=== PATIENT | female | born 1995 | race Caucasian/White ===

== ENCOUNTER 2017-03-09 22:09 | Emergency (ER) | payer OTHER ==
--- NOTE | 2017-03-09 22:20 | EDPHY ---
H & P Stated Complaint: ST, hurts to breathe HPI/ROS: CHIEF COMPLAINT: Sore throat HISTORY OF PRESENT ILLNESS: The patient is a 22-year-old female presenting with sore throat for the past 4 days. Her sore throat has progressively been worsening. She reports pain with breathing and swallowing. She has a slight cough that is nonproductive. She denies fever, abdominal pain, nausea, vomiting , or diarrhea. She did not receive the influenza vaccine this season. REVIEW OF SYSTEMS: A ten point review of systems was performed and is negative with the exception of the items mentioned in the HPI. Source: Patient - Personal History LMP (Females 10-55): Extended Cycle BCP/Inj Current Tetanus/Diphtheria Vaccine: Yes Current Tetanus Diphtheria and Acellular Pertussis (TDAP): Yes - Medical/Surgical History Hx Asthma: No Hx Chronic Respiratory Disease: No Hx Diabetes: No Hx Cardiac Disease: No Hx Renal Disease: No Hx Cirrhosis: No Hx Alcoholism: No Hx HIV/AIDS: No Hx Splenectomy or Spleen Trauma: No Other PMH: migraines, polycycstic kidney disease, ulcers. - Social History Smoking Status: Never smoked Alcohol Use: Rarely Drug Use: None Additional Social History: Student at [employer]. - Physical Exam Exam: General Appearance: Alert. Vital signs reviewed. BP 177/123 at triage. Repeat BP 144/105. Eyes: Pupils equal and round, no conjunctival injection, no discharge. Anicteric. ENT, Mouth: Mucous membranes are moist, mild oropharyngeal erythema, no exudates, no edema. Neck: No lymphadenopathy, supple. No meningismus. Respiratory: Lungs are clear to auscultation; no wheezes, rales, or rhonchi. Cardiovascular: Regular rate and rhythm; no murmur, rub, or gallop. Gastrointestinal: Abdomen is soft and nontender, no masses or organomegaly, bowel sounds normal. Skin: Warm and dry, no rashes on exposed skin, normal color. Back: Nontender to palpation over the thoracolumbar spine. No CVAT. Extremities: No lower extremity edema, no calf tenderness or swelling. Neurological: Alert and oriented. Moving all four extremities easily and equally. Psychiatric: Normal affect. Constitutional: Initial Vital Signs Temperature (C) 36.9 C 03/09/17 22:12 Heart Rate 84 03/09/17 22:12 Respiratory Rate 16 03/09/17 22:12 Blood Pressure 177/123 H 03/09/17 22:12 O2 Sat (%) 98 03/09/17 22:12 O2 Delivery Mode Room Air Allergies/Adverse Reactions: codeine Allergy (Verified 03/09/17 22:12) NSAIDS (Non-Steroidal Anti-Inflamma Allergy (Verified 03/09/17 22:12) Penicillins Allergy (Verified 03/09/17 22:12) Home Medications: Medication Instructions Recorded Bcp 03/09/17 Omeprazole 03/09/17 Ondansetron Odt [Zofran Odt 4 mg 4 mg PO Q4 PRN #10 tab 03/09/17 (RX)] Medical Decision Making ED Course/Re-evaluation: The patient is a 22-year-old female presenting with sore throat. She reports pain with breathing and swallowing. One exam has pharyngeal erythema, no swelling. Rapid strep screen and nasal swab for influenza were ordered. Patient has a history of ulcers, plan to give 650mg Tylenol PO for pain. Strep and influenza tests were negative. I am recommending symptomatic treatment. A prescription for Vicodin was written. After speaking with her mother she tells me that all opiate pain medications cause nausea and vomiting, even with the use of an antiemetic. She declines prescription for pain medication. She would like to try an oral steroid to help combat her sensation of throat swelling. She was given a dose of oral decadron. I do not suspect epiglottitis at this juncture, nor do I suspect retropharyngeal abscess. Exam does not show peritonsillar abscess. I think that this is likely a viral pharyngitis. This does not appear to be an allergic reaction or angioedema. She is aware of her high blood pressure in the ED and will have it rechecked by primary care provider. Differential Diagnosis: I considered a differential diagnosis that includes but is not limited to pharyngitis either viral or bacterial, influenza, retropharyngeal abscess, epiglottitis, and upper respiratory infection. - Data Points Medications Given: Discontinued Medications Acetaminophen (Tylenol) 650 mg PO EDNOW ONE Stop: 03/09/17 22:28 Last Admin: 03/09/17 22:38 Dose: 650 mg Hydrocodone Bitart/Acetaminophen (Divide 5/325mg Prepack#6) 1 btl TAKEHOME EDNOW ONE Stop: 03/09/17 23:29 Last Admin: 03/10/17 00:02 Dose: Not Given Dexamethasone (Decadron) 4 mg PO EDNOW ONE Stop: 03/09/17 23:40 Last Admin: 03/09/17 23:47 Dose: 4 mg Ondansetron HCl (Zofran Odt 4 Mg Prepack#2) 1 btl TAKEHOME EDNOW ONE Stop: 03/09/17 23:31 Last Admin: 03/10/17 00:03 Dose: 1 btl Departure - Departure Disposition: Home, Routine, Self-Care Clinical Impression: Pharyngitis Qualifiers: Pharyngitis/tonsillitis etiology: unspecified etiology Qualified Code(s): J02.9 - Acute pharyngitis, unspecified Condition: Good Instructions: Ondansetron (By mouth), Pharyngitis (ED) Additional Instructions: Get lots of rest. Drink lots of fluids, even though it hurts. It is fine to use any of the rjcj-wiw-kyrhvnj medications for sore throat-- saltwater gargle, lozenges, throat coat tea. Use the Vicodin for severe pain as needed. Each Vicodin contains hydrocodone, a narcotic, and Tylenol 325 mg. You received Tylenol 650 mg in the emergency room tonight at around 10:00 p.m.. Take a Vicodin when you get home. Remember that you cannot take more than 3000 mg of Tylenol in a 24 hour time period. I recommend that you see right down whenever you take Tylenol or Vicodin so that you can keep track of the dosing. You should not try to take a test tomorrow morning. I will provide a school excuse for you. If you are having severe difficulty breathing or swallowing you should be reexamined immediately. If you're not getting better I recommend that you be seen at [facility] within the next day or 2. Referrals: [facility] [Clinic] - As per Instructions Stand Alone Forms: School Excuse Prescriptions: Ondansetron Odt [Zofran Odt 4 mg (RX)] 4 mg PO Q4 PRN #10 tab PRN Reason: nausea Report Scribed for: Erika Jean Report Scribed by: Ivelisse Gtz Date of Report: 03/09/17 Time of Report: 22:27 Physician Review and Approval Statement: 03/09/17 22:20 Portions of this note were transcribed by the medical accounting clerk. I, Dr. Erika Jean, personally performed the history, physical exam, and medical decision- making; and confirmed the accuracy of the information in the transcribed note.
[2017-03-09] MEDS ORDERED: ACETAMINOPHEN 325 MG TAB PO ONE (22:27)
[2017-03-09] MEDS ORDERED: HYDROCOD/APAP 5/325 PREPACK#6 BTL TAKEHOME ONE (23:28)
[2017-03-09] MEDS ORDERED: ONDANSETRON 4MG PREPACK#2 BTL TAKEHOME ONE (23:30)
[2017-03-09] MEDS ORDERED: DEXAMETHASONE 4 MG TAB PO ONE (23:39)
[2017-03-10 00:18] VITALS: BP 144/105; PULSE 68; RESP 15; TEMP 98.2; O2SAT 96
== END 2017-03-09 23:52 | disposition home or self-care (01) ==
DX: J02.9 Acute pharyngitis, unspecified (principal)

== ENCOUNTER 2017-08-20 18:52 | Emergency (ER) | payer OTHER ==
[2017-08-20 19:04] VITALS: PULSE 78; RESP 16; TEMP 98.1; O2SAT 100
[2017-08-20 19:05] VITALS: BP 164/106
--- NOTE | 2017-08-20 19:27 | EDPHY ---
H & P Stated Complaint: Steam benson from oven on face and neck. Time Seen by Provider: 08/20/17 19:23 HPI/ROS: CHIEF COMPLAINT: "Steam benson" HISTORY OF PRESENT ILLNESS: This patient is a 22 year female complaining of steam benson on her face and neck sustained when opening her oven about one hour ago. She was making soup, and a large quantity of steam came out of the oven and washed over her chest and face. She applied ice and burn cream, but continues to feel quite a bit of pain to her chest and lips. She is hyperventilating, but denies dyspnea or difficulty breathing. Her mouth, nose, and airway feel okay. She has no further complaints or other associated symptoms. REVIEW OF SYSTEMS: A 10 point review of systems was performed and is negative with the exception of the elements mentioned in the history of present illness. - Personal History LMP (Females 10-55): Unknown Current Tetanus/Diphtheria Vaccine: Yes Current Tetanus Diphtheria and Acellular Pertussis (TDAP): Yes - Medical/Surgical History PMH: 1. Migraines, 2. Polycystic kidney disease 3. Ulcers Hx Asthma: No Hx Chronic Respiratory Disease: No Hx Diabetes: No Hx Cardiac Disease: No Hx Renal Disease: No Hx Cirrhosis: No Hx Alcoholism: No Hx HIV/AIDS: No Hx Splenectomy or Spleen Trauma: No Other PMH: migraines, polycycstic kidney disease, ulcers. - Social History Smoking Status: Never smoked Additional Social History: Student. Nonsmoker. Lives in [place]. - Physical Exam Exam: General Appearance: Alert, hyperventilating, appears anxious Eyes: Pupils equal and round, no conjunctival pallor or injection ENT, Mouth: erythema on the inferior aspect of her nose externally, no singed nasal hair; oropharynx normal, no swelling Neck: Normal inspection, no stridor Respiratory: Lungs are clear to auscultation Cardiovascular: Regular rate and rhythm Neurological: A&O, nonfocal, normal gait Skin: Warm and dry, patchy erythema on upper chest, lips, and inferior aspect of nose. Extremities: Nontender, no pedal edema Psychiatric: anxious Constitutional: Initial Vital Signs Temperature (C) 36.7 C 08/20/17 19:02 Heart Rate 78 08/20/17 19:02 Respiratory Rate 16 08/20/17 19:02 Blood Pressure 164/106 H 08/20/17 19:02 O2 Sat (%) 100 08/20/17 19:02 O2 Delivery Mode Room Air Allergies/Adverse Reactions: codeine Allergy (Verified 03/09/17 22:12) NSAIDS (Non-Steroidal Anti-Inflamma Allergy (Verified 03/09/17 22:12) Penicillins Allergy (Verified 03/09/17 22:12) Home Medications: Medication Instructions Recorded Bcp 03/09/17 Omeprazole 03/09/17 Ondansetron Odt [Zofran Odt 4 mg 4 mg PO Q4 PRN #10 tab 03/09/17 (RX)] Medical Decision Making ED Course/Re-evaluation: 22 y/o female presents with superficial steam benson to her chest and face. No evidence of intranasal/oral involvement. Ice applied to the benson. Plan to administer 1000mg PO Tylenol for symptom relief. The patient states she is allergic to NSAIDs. I offered hydrocodone, but she states narcotic pain medications cause her to vomit violently. Plan to discharge home in good condition. Follow up and return precautions discussed. The patient is comfortable with this plan. - Data Points Medications Given: Discontinued Medications Acetaminophen (Tylenol) 1,000 mg PO EDNOW ONE Stop: 08/20/17 19:41 Last Admin: 08/20/17 19:42 Dose: 1,000 mg Departure - Departure Disposition: Home, Routine, Self-Care Clinical Impression: Superficial burn of face Qualifiers: Encounter type: initial encounter Qualified Code(s): T20.10XA - Burn of first degree of head, face, and neck, unspecified site, initial encounter Superficial burn of chest wall Qualifiers: Encounter type: initial encounter Qualified Code(s): T21.11XA - Burn of first degree of chest wall, initial encounter Condition: Good Instructions: Superficial Burn (ED) Additional Instructions: 1. Apply ice for comfort. 2. Take 650mg Tylenol every 4-6 hours as needed for pain. 3. Follow up with your primary care provider for continued concerns. Referrals: Cristi Mena MD [Medical Doctor] - As per Instructions Report Scribed for: Flory Altman Report Scribed by: Jazzy Mark Date of Report: 08/20/17 Time of Report: 19:29 Physician Review and Approval Statement: 08/20/17 19:29 Portions of this note were transcribed by a medical record specialist. I personally performed a history, physical exam, medical decision making, and confirmed accuracy of information the transcribed note.
[2017-08-20] MEDS ORDERED: HYDROCODONE/APAP 5/325 TAB PO ONE (19:33)
[2017-08-20] MEDS ORDERED: HYDROCOD/APAP 5/325 PREPACK#6 BTL TAKEHOME ONE (19:34)
[2017-08-20] MEDS ORDERED: ACETAMINOPHEN 500 MG TAB PO ONE (19:40)
== END 2017-08-20 19:57 | disposition home or self-care (01) ==
DX: T20.10XA Burn of first degree of head, face, and neck, unspecified site, initial encounter (principal); T21.11XA Burn of first degree of chest wall, initial encounter; X13.1XXA Other contact with steam and other hot vapors, initial encounter; Y99.8 Other external cause status; Y93.G3 Activity, cooking and baking

== ENCOUNTER 2017-09-12 07:49 | Emergency (ER) | payer OTHER ==
--- NOTE | 2017-09-12 08:39 | EDPHY ---
H & P Stated Complaint: running last night twisted r ankle HPI/ROS: Chief complaint: Right ankle injury History of present illness: 22-year-old female presents to the emergency department for right ankle injury. She was running last night when she twisted her ankle. Since then she has had diffuse pain throughout the ankle and foot. It makes it difficult to ambulate. She denies other associated signs or symptoms in regards to the ankle injury including no open wounds, no abnormal coolness or paresthesias in the ankle. She states that the discomfort is giving her a headache. She is also requesting treatment for her headache. She has a history of migraine headaches and this is typical. There is nothing new or different today is compared to previous episodes. No fevers, no cold like symptoms, no neurologic symptoms beyond headache such as paresthesias, weakness or paralysis or bowel or bladder dysfunction. There was no trauma to her head. Review of systems: A 10 point review of systems was obtained and other than described above was negative - Personal History LMP (Females 10-55): Extended Cycle BCP/Inj Current Tetanus/Diphtheria Vaccine: No - Medical/Surgical History Hx Asthma: No Hx Chronic Respiratory Disease: No Hx Diabetes: No Hx Cardiac Disease: No Hx Renal Disease: No Hx Cirrhosis: No Hx Alcoholism: No Hx HIV/AIDS: No Hx Splenectomy or Spleen Trauma: No Other PMH: migraines, polycycstic kidney disease, ulcers. - Social History Smoking Status: Never smoked - Physical Exam Exam: General Appearance: Alert and no distress. Eyes: Pupils equal and round no injection. Respiratory: Chest is non tender, lungs are clear to auscultation. Cardiac: regular rate and rhythm Gastrointestinal: Abdomen is soft and non tender, no masses, bowel sounds normal. Musculoskeletal: Diffuse tenderness to the right ankle and foot without point of maximal intensity noted. No crepitus or bony deformity. She is moving the right ankle in the digits of the right foot. The knee is nontender and she is moving it well. Skin: No rashes or lesions. Neurological: Alert and oriented x4. Cranial nerves 2-12 grossly intact. Strength and sensation intact and symmetrical. No meningismus. Constitutional: Initial Vital Signs Temperature (C) 36.6 C 09/12/17 07:53 Heart Rate 92 09/12/17 07:53 Respiratory Rate 17 09/12/17 07:53 Blood Pressure 149/93 H 09/12/17 07:53 O2 Sat (%) 96 09/12/17 07:53 O2 Delivery Mode Room Air Allergies/Adverse Reactions: codeine Allergy (Verified 09/12/17 07:52) NSAIDS (Non-Steroidal Anti-Inflamma Allergy (Verified 09/12/17 07:52) Penicillins Allergy (Verified 09/12/17 07:52) Home Medications: Medication Instructions Recorded Bcp 03/09/17 Omeprazole 03/09/17 Medical Decision Making - Diagnostics Imaging Results: Imaging Impressions Ankle X-Ray 09/12/17 08:01 Impression: There is no acute osseous abnormality. RIGHT FOOT (3 Views, at 8:21 AM): There is no acute fracture or dislocation. There is an unfused os tibiale externum along the medial edge of the navicular. The tarsometatarsal alignment is anatomic. The calcaneocuboid joint is aligned, and the base of the fifth metatarsal is unremarkable. Impression: There is no acute osseous abnormality identified. Foot X-Ray 09/12/17 08:01 Impression: There is no acute osseous abnormality. RIGHT FOOT (3 Views, at 8:21 AM): There is no acute fracture or dislocation. There is an unfused os tibiale externum along the medial edge of the navicular. The tarsometatarsal alignment is anatomic. The calcaneocuboid joint is aligned, and the base of the fifth metatarsal is unremarkable. Impression: There is no acute osseous abnormality identified. Imaging: I viewed and interpreted images myself Procedures: Procedure: Splint placement. A Brett wrap and Velcro stirrup splint was applied. After application of the splint I returned and re-examined the patient. The splint was adequately immobilizing the joint and distal to the splint the patient's circulation and sensation was intact. ED Course/Re-evaluation: Patient seen under the supervision of my secondary supervising physician Dr. Kali Aguilar. Patient presents to the emergency department primarily for a right ankle injury and secondarily for a headache. Her foot is neurovascularly intact. X-rays are negative. Likely sprain/strain. Placed in an Brett wrap and stirrup splint and symptomatic care is discussed. She reports a headache that is very typical in nature. No red flag risk factors noted. She is symptomatically treated with improvement in symptoms. Patient is discharged home. Home care is discussed. Return precautions are given. The patient voiced understanding and agreement with plan. Differential Diagnosis: Included but not limited to contusion, sprain or strain, bony fracture, joint dislocation as well as migraine headache, tension headache, cluster headache, unlikely intracranial bleed or meningitis - Data Points Medications Given: Discontinued Medications Sodium Chloride (Ns) 1,000 mls @ 0 mls/hr IV EDNOW ONE; Wide Open PRN Reason: Protocol Stop: 09/12/17 08:47 Last Admin: 09/12/17 08:54 Dose: 1,000 mls Metoclopramide HCl (Reglan Injection) 10 mg IVP EDNOW ONE Stop: 09/12/17 08:47 Last Admin: 09/12/17 08:55 Dose: 10 mg Departure - Departure Disposition: Home, Routine, Self-Care Clinical Impression: Right ankle sprain Qualifiers: Encounter type: initial encounter Involved ligament of ankle: unspecified ligament Qualified Code(s): S93.401A - Sprain of unspecified ligament of right ankle, initial encounter Headache Qualifiers: Headache type: unspecified Headache chronicity pattern: acute headache Intractability: not intractable Qualified Code(s): R51 - Headache Condition: Good Instructions: Ankle Sprain (ED), Acute Headache (ED) Additional Instructions: Follow-up with your primary care doctor for recheck Ice the injury, 20 minutes on, 3 times daily for the next 3 days Elevate the injury as much as possible [id number] pain medications as tolerated as directed If symptoms worsen or new symptoms develop return to the emergency room for recheck Referrals: [facility] [Other] - As per Instructions
[2017-09-12] MEDS ORDERED: METOCLOPRAMIDE 10 MG/2 ML VIAL IVP ONE (08:46)
[2017-09-12] MEDS ORDERED: NS 1,000 ML IV ONE (08:46)
[2017-09-12 09:56] VITALS: BP 147/101; PULSE 95; RESP 15; TEMP 98.8; O2SAT 97
== END 2017-09-12 09:56 | disposition home or self-care (01) ==
PROC: 3E0337Z Introduction of Electrolytic and Water Balance Substance into Peripheral Vein, Percutaneous Approach (ICD-10-PCS; principal; 2017-09-12)
DX: S93.401A Sprain of unspecified ligament of right ankle, initial encounter (principal); R51 Headache; E86.9 Volume depletion, unspecified; X50.9XXA Other and unspecified overexertion or strenuous movements or postures, initial encounter; Y93.02 Activity, running
CPT/HCPCS: 96374; J2765; L4350

== ENCOUNTER 2018-09-05 20:02 | Emergency (ER) | payer OTHER ==
[2018-09-05] MEDS ORDERED: NS 1,000 ML IV ONE ×2 (20:32)
[2018-09-05] MEDS ORDERED: PROMETHAZINE HCL 25 MG/ML INJ IVP ONE (20:32)
--- NOTE | 2018-09-05 20:33 | EDPHY ---
H & P Stated Complaint: abd pain, n/v migraines Time Seen by Provider: 09/05/18 20:30 HPI/ROS: HPI: This is a 23-year-old female presents with Chief Complaint: Nausea, vomiting, migraine Location: GI Quality: Nausea, vomiting Duration: Since this morning around 8:00 p.m. Signs and Symptoms: no fever, + nausea, + vomiting, no hematemesis, no blood in stool, no abdominal bloating, no diarrhea, no back pain, no urinary symptoms, no vaginal bleeding/discharge, no indigestion, no chest pain, no shortness of breath Timing: Acute, intermittent Severity: [id number] Context: Patient has a history of migraine headaches, takes oral control pills, presents with concerns of food poisoning from eating the chicken wings at [employer] yesterday evening around 9:00 p.m. She reports she reports that she woke up this morning feeling nauseous and has vomited 5 times approximately over the last 18 hr. Within the last 3 hr she started to developed headache that is generalized and accompanied by noise sensitivity and light sensitivity. She believes that since she has not ate or drank anything today this is causing her headache. She denies any abdominal pain but does complain of abdominal cramping before after emesis. Her menses is normally irregular. Denies any visual changes. Modifying Factors: None Comment: ROS: A comprehensive 10 system review of systems is otherwise negative aside from elements mentioned in the history of present illness. MEDICAL/SURGICAL/SOCIAL HISTORY: Medical history: migraines, polycystic kidney disease, ulcers. Takes oral control pills. Surgical history: Denies Social history: Employed. Family history noncontributory. CONSTITUTIONAL: Nontoxic-appearing young adult white female, calm and cooperative, awake and alert, no obvious distress HEENT: Atraumatic and normocephalic, PERRL, EOMI. Nares patent; no rhinorrhea; no nasal mucosal edema. Tympanic membranes clear. Oropharynx clear, no exudate and moist pink mucosa. Airway patent. No lymphadenopathy. No meningismus. Cardiovascular: Normal S1/S2, regular rate, regular rhythm, without murmur rub or gallop. PULMONARY/CHEST: Symmetrical and nontender. Clear to auscultation bilaterally. Good air movement. No accessory muscle usage. ABDOMEN: Soft, nondistended, nontender, no rebound, no guarding, no peritoneal signs, no masses or organomegaly. No CVAT. Hyperactive bowel sounds x4 quadrants. EXTREMITIES: 2/2 pulses, strength 5/5, no deformities, no clubbing, no cyanosis or edema. NEUROLOGICAL: no focal neuro deficits. GCS 15. SKIN: Warm and dry, no erythema. no rash. Good capillary refill. Source: Patient Exam Limitations: No limitations - Personal History LMP (Females 10-55): Irregular Current Tetanus Diphtheria and Acellular Pertussis (TDAP): Unsure - Medical/Surgical History Hx Asthma: No Hx Chronic Respiratory Disease: No Hx Diabetes: No Hx Cardiac Disease: No Hx Renal Disease: No Hx Cirrhosis: No Hx Alcoholism: No Hx HIV/AIDS: No Hx Splenectomy or Spleen Trauma: No Other PMH: migraines, polycycstic kidney disease, ulcers. - Social History Smoking Status: Never smoked Constitutional: Initial Vital Signs Temperature (C) 37.2 C 09/05/18 20:07 Heart Rate 112 H 09/05/18 20:07 Respiratory Rate 20 09/05/18 20:07 Blood Pressure 135/94 H 09/05/18 20:07 O2 Sat (%) 97 09/05/18 20:07 O2 Delivery Mode Room Air Allergies/Adverse Reactions: codeine Allergy (Verified 09/05/18 20:06) NSAIDS (Non-Steroidal Anti-Inflamma Allergy (Verified 09/05/18 20:06) Penicillins Allergy (Verified 09/05/18 20:06) Home Medications: Medication Instructions Recorded Bcp 03/09/17 Omeprazole 03/09/17 Acet/Caffeine/Buta Fioricet 1 each PO Q6 PRN #12 tab 09/05/18 [Fioricet (*)] Ondansetron Odt [Zofran Odt 4 mg 4 mg PO Q4 PRN #12 tab 09/05/18 (*)] Medical Decision Making ED Course/Re-evaluation: Vital signs reviewed and show mild tachycardia. Suspect the tachycardia is related to hypovolemia secondary to vomiting. Laboratory studies ordered. Headache is not worst of life. No indication for imaging. No concern for aneurysm or dissection. Abdomen is soft and nontender. Doubt surgical process and need for imaging. Patient does not have any diarrhea to obtain stool samples. Given 2 L normal saline, IV promethazine 12.5 mg 2130: Labs reviewed. Mild elevation total bili at 1.8. no signs of Electrolyte imbalance/acute kidney injury/pancreatitis/. 2131: Reassessed patient reports mild relief of symptoms. No episodes of emesis while in the emergency room thus far. Given IV Reglan 10 mg and IV Benadryl 50 mg. 2229: Reassessed patient who reports nearly complete relief of symptoms. Given a prescription for Fioricet and Zofran as well as Zofran prepack to take home. This patient was seen under the supervision of my secondary supervising physician. I evaluated care for this patient independently. Discussed this patient with Dr. Altman. Differential Diagnosis: Abdominal pain including but not limited to appendicitis, cholecystitis, gastritis and urinary tract infection. - Data Points Laboratory Results: Laboratory Results 09/05/18 20:35 09/05/18 09/05/18 20:35 20:35 Sodium 136 mEq/L mEq/L (135-145) Potassium 3.9 mEq/L mEq/L (3.3-5.0) Chloride 101 mEq/L mEq/L (97-110) Carbon Dioxide 24 mEq/l mEq/l (22-31) Anion Gap 11 mEq/L mEq/L (6-14) BUN 13 mg/dL mg/dL (7-23) Creatinine 0.7 mg/dL mg/dL (0.6-1.0) Estimated GFR > 60 Glucose 104 mg/dL H mg/dL (70-100) Calcium 9.1 mg/dL mg/dL (8.5-10.4) Total Bilirubin 1.8 mg/dL H mg/dL (0.1-1.4) Conjugated Bilirubin 0.2 mg/dL mg/dL (0.0-0.5) Unconjugated Bilirubin 1.6 mg/dL H mg/dL (0.0-1.1) AST 20 IU/L IU/L (14-46) ALT 29 IU/L IU/L (9-52) Alkaline Phosphatase 40 IU/L IU/L (38-126) Total Protein 6.8 g/dL g/dL (6.3-8.2) Albumin 4.1 g/dL g/dL (3.5-5.0) Lipase 39 IU/L IU/L (23-300) Beta HCG, Qual NEGATIVE Medications Given: Discontinued Medications Diphenhydramine HCl (Benadryl Injection) 50 mg IVP EDNOW ONE Stop: 09/05/18 21:33 Last Admin: 09/05/18 21:36 Dose: 50 mg Sodium Chloride (Ns) 1,000 mls @ 0 mls/hr IV EDNOW ONE; Wide Open PRN Reason: Protocol Stop: 09/05/18 20:33 Last Admin: 09/05/18 20:39 Dose: 1,000 mls Sodium Chloride (Ns) 1,000 mls @ 0 mls/hr IV EDNOW ONE; Wide Open PRN Reason: Protocol Stop: 09/05/18 20:33 Last Admin: 09/05/18 20:38 Dose: 1,000 mls Metoclopramide HCl (Reglan Injection) 10 mg IVP EDNOW ONE Stop: 09/05/18 21:32 Last Admin: 09/05/18 21:36 Dose: 10 mg Ondansetron HCl (Zofran Odt 4 Mg Prepack#2) 1 btl TAKEHOME EDNOW ONE Stop: 09/05/18 21:35 Last Admin: 09/05/18 22:33 Dose: 1 btl Promethazine HCl (Phenergan) 12.5 mg IVP EDNOW ONE Stop: 09/05/18 20:33 Last Admin: 09/05/18 20:39 Dose: 12.5 mg Departure - Departure Disposition: Home, Routine, Self-Care Clinical Impression: Food intolerance, Gastroenteritis Cephalgia Qualifiers: Headache type: unspecified Headache chronicity pattern: acute headache Intractability: not intractable Qualified Code(s): R51 - Headache Condition: Good Instructions: Gastroenteritis (ED), Acute Headache (ED) Additional Instructions: Consume a minimum of 8-10 glasses of water or electrolyte fluid replacement drinks that include Gatorade, Powerade, Pedialyte. Eat a bland diet for the next 48 hours and then slowly advance as tolerated. Take Zofran 1 tab every 4 hours as needed for nausea, vomiting. Take Fioricet every 6 hr as needed for headache. Establish care with [facility]. Return to the Emergency Room if symptoms do not resolve in the next 72 hours, you spike a fever > 102 F, or experience intractable abdominal pain/nausea/ vomiting. Return to the ER immediately if you have progressive headaches, neurologic deficits, gait abnormality, visual disturbance, slurred speech, or any other symptom that concerns you. Referrals: [facility],. [Clinic] - As per Instructions Stand Alone Forms: Work Excuse Prescriptions: Acet/Caffeine/Buta Fioricet [Fioricet (*)] 1 each PO Q6 PRN #12 tab PRN Reason: Headache Ondansetron Odt [Zofran Odt 4 mg (*)] 4 mg PO Q4 PRN #12 tab PRN Reason: Nausea/Vomiting, Use 1st
[2018-09-05] MEDS ORDERED: METOCLOPRAMIDE 10 MG/2 ML VIAL IVP ONE (21:31)
[2018-09-05] MEDS ORDERED: ONDANSETRON 4MG PREPACK#2 BTL TAKEHOME ONE (21:34)
[2018-09-05 22:37] VITALS: BP 143/93
== END 2018-09-05 22:36 | disposition home or self-care (01) ==
DX: K52.9 Noninfective gastroenteritis and colitis, unspecified (principal); R51 Headache; T78.1XXA Other adverse food reactions, not elsewhere classified, initial encounter; E86.9 Volume depletion, unspecified
CPT/HCPCS: 96374; J1200; J2550; J2765